=== PATIENT | female | born 1965 | race Caucasian/White ===

== ENCOUNTER → 2023-10-26 17:44 | Outpatient (REF) | payer OTHER, SELFPAY | LOC: WDC 17:44 | PROVIDERS: ATTENDING PHYSICIAN Nurse Practitioner Family | DX: Z12.31 Encounter for screening mammogram for malignant neoplasm of breast (principal) | CPT/HCPCS: 77063; 77067 ==

== ENCOUNTER → 2024-11-16 11:21 | Outpatient (REF) | payer OTHER, SELFPAY | LOC: WDC 11:21 | PROVIDERS: ATTENDING PHYSICIAN Nurse Practitioner Family | DX: Z12.31 Encounter for screening mammogram for malignant neoplasm of breast (principal) | CPT/HCPCS: 77063; 77067 ==